=== PATIENT | male | born 1995 | race Caucasian/White ===

== ENCOUNTER 2021-05-25 14:49 | Emergency (ER) | payer SELFPAY | END 2021-05-25 15:10 | disposition left against medical advice (07) | LOC: ER 14:49 | DX: S43.005A Unspecified dislocation of left shoulder joint, initial encounter (principal); Z53.21 Procedure and treatment not carried out due to patient leaving prior to being seen by health care provider; X58.XXXA Exposure to other specified factors, initial encounter; Y93.89 Activity, other specified; Y92.89 Other specified places as the place of occurrence of the external cause; Y99.8 Other external cause status ==